=== PATIENT | female | born 1950 | race Two or more races ===

== ENCOUNTER 2019-01-06 05:25 | Day surgery (SDC) | payer MEDICARE, OTHER ==
[2019-01-03 12:17] LABS: CLARITY,URINE CLEAR (Clear); COLOR,URINE STRAW (Yellow); GLUCOSE, URINE NEGATIVE (Neg); KETONES,URINE NEGATIVE (Neg); LEUKOCYTE ESTERASE ,URINE NEGATIVE (Neg); NITRITES, URINE NEGATIVE (Neg); OCCULT BLOOD,URINE SMALL (Neg); PROTEIN,URINE NEGATIVE (Neg); UROBILINOGEN,URINE 0.2 E.U/dL (0.2-1.0)
[2019-01-03 12:21] LABS: UA COLLECTION TYPE CLN CATCH MIDSTREAM
[2019-01-03 12:39] LABS: BASOPHILS % (AUTO) 0.4 % (0-1); EOSINOPHILS # (AUTO) 0.2 X10'3 (0-0.9); EOSINOPHILS % (AUTO) 3.6 % (0-6); LYMPHOCYTES # (AUTO) 1.7 X10'3 (1.1-4.8); LYMPHOCYTES % (AUTO) 27.2 % (21-51); MEAN CORPUSCULAR HEMOGLOBIN 27.9 PG (27.0-31.0); MEAN CORPUSCULAR HGB CONC 33.1 g/dL (33.0-36.5); MEAN CORPUSCULAR VOLUME 84.2 FL (78-98); MEAN PLATELET VOLUME 7.9 FL (7.4-10.4); MONOCYTES # (AUTO) 0.6 X10'3 (0-0.9); MONOCYTES % (AUTO) 9.2 % (2-12); NEUTROPHILS # (AUTO) 3.7 X10'3 (1.8-7.7); NEUTROPHILS % (AUTO) 59.6 % (42-75); PRE OP HEMATOCRIT 36.7 % (35.0-45.0); PRE OP HEMOGLOBIN 12.1 g/dL (12.0-16.0); PRE OP PLATELET COUNT 272 X10'3 (140-440); RED BLOOD COUNT 4.35 X10'6 (4.20-5.60); RED CELL DISTRIBUTION WIDTH 13.3 % (11.5-14.5)
[2019-01-03 12:44] LABS: ALBUMIN 3.2 G/DL (3.4-5.0); ALBUMIN/GLOBULIN RATIO 0.9 (1.1-1.5); ALKALINE PHOSPHATASE 64 IU/L (46-116); BLOOD UREA NITROGEN 13 MG/DL (7-18); BUN/CREATININE RATIO 34.2 (6.6-38.0); CALCIUM 9.5 MG/DL (8.5-10.1); CHLORIDE 106 MMOL/L (99-107); CREATININE 0.38 MG/DL (0.40-0.90); PRE OP ALT 27 U/L (30-65); PRE OP ANION GAP 8 (8-16); PRE OP AST 21 U/L (10-37); PRE OP BILIRUB, TOTAL 0.3 MG/DL (0.0-1.0); PRE OP GLUCOSE 109 MG/DL (70-104); PRE OP POTASSIUM 3.8 MMOL/L (3.4-5.1); PRE OP SODIUM 140 MMOL/L (135-145); TOTAL CARBON DIOXIDE 26.2 MMOL/L (24-32); TOTAL PROTEIN 6.9 G/DL (6.4-8.2); eGFR > 90 ML/MIN
[2019-01-03 13:01] LABS: PRE OP INR 1.1 INR; PRE OP PROTIME 10.7 SECONDS (9.0-12.0)
[2019-01-03 13:02] LABS: MUCUS STRANDS NONE SEEN /LPF (Neg); SQUAMOUS EPITHELIAL CELL,UR FEW /LPF (FEW)
[2019-01-03 13:03] LABS: BACTERIA,URINE NONE SEEN /HPF (Neg); RBC,URINE 0-2 /HPF (0-2); WBC,URINE 0-4 /HPF (0-4)
[2019-01-06] VITALS (17 sets, daily range): BP systolic 139–186; BP diastolic 75–100
[~2019-01-06] VITALS: Ht 157.5 cm; Wt 65.8 kg
[~2019-01-06 05:25] MED LIST: ATOR40TA71 PO; CALC-1051 PO; CHOL100046 PO; FA/M1TAB PO; ringers solution, lacted 1,000 ML IV SCH
[2019-01-06] MEDS ORDERED: famotidine 20mg tablet PO ONE (05:30)
[2019-01-06] MEDS ORDERED: cefotetan 2gm/isosm dext IVPB 50 ML IV ONE (05:30)
[2019-01-06] MEDS ORDERED: tranexamic acid inj. 1,000 MG in normal saline 100 ML IV ONE (05:30)
[2019-01-06] MEDS ORDERED: LIDOcaine 1% (10mg/ml) 2ml vial ONE (05:42)
[2019-01-06] MEDS ORDERED: LIDOcaine 1% 30ml preserv. free vial ONE (06:48)
[2019-01-06] MEDS ORDERED: BUPIVAcaine/PF 2.5mg/ml (0.25%) 10ml vial ONE (06:48)
[2019-01-06] MEDS ORDERED: fentaNYL /PF 50mcg/ml 5ml ampule ONE (07:11)
[2019-01-06] MEDS ORDERED: midazolam 2 mg/2 ml injection ONE (07:11)
[2019-01-06] MEDS ORDERED: sevoflurane 250ml liquid IH ONE (07:12)
[2019-01-06] MEDS ORDERED: rocuronium 10mg/ml inj IV ONE ×2 (07:12)
[2019-01-06] MEDS ORDERED: propofol inj 20 ML IV ONE (07:12)
[2019-01-06] MEDS ORDERED: morphine 10mg/ml inj. ONE (07:47)
[2019-01-06] MEDS ORDERED: ringers solution, lacted 1,000 ML IV SCH (08:22)
[2019-01-06] MEDS ORDERED: morphine 4 MG/ML inj SYRINge IV PRN ×2 (08:25)
[2019-01-06] MEDS ORDERED: ondansetron/PF 4mg/2ml inj IV PRN (08:25)
[2019-01-06] MEDS ORDERED: proCHLORperazine 10 MG/2 ml inj IV PRN (08:25)
[2019-01-06] MEDS ORDERED: meperidine/PF 25mg/ml syringe IV PRN ×3 (08:25)
[2019-01-06] MEDS ORDERED: dexamethasone sod phosphate 4mg/ml inj. ONE (10:06)
[2019-01-06] MEDS ORDERED: glycopyrrolate 0.2mg/ml inj ONE (10:07)
[2019-01-06] MEDS ORDERED: neostigmine methylsulfate 1 MG/ML 10ml vial ONE (10:07)
[2019-01-06] MEDS ORDERED: ondansetron/PF 4mg/2ml inj ONE (10:07)
--- NOTE | 2019-01-06 10:20 | NUR ---
Received from OR via SURGICAL BED, accompanied by Anesthesiologist FUAD and report given by Anesthesiolgist. PATIENT WITH 20G PIOV IN LEFT UE RUNNING LR AT 100. DENIES PAIN. ZIA BARONE ON FOR COMFORT AND SCDS DONNED. NO KOREY PAD. Addendum: 01/06/19 at 1032 by Alejandro Kramer RN, RN Amended: Links added.
--- NOTE | 2019-01-06 11:30 | NUR ---
Report called to receiving nurse VICKY SALINAS. Transferred via SURGICAL BED WITH NO Belongings . Special Issues communicated to Receiving nurse.VSS. BED LOW, CALL LIGHT IN PLACE. PATIENT COMFORTABLE. VOIDED PRIOR TO TRANSFER. 300 CC. VICKY PRESENT TO ASSUME CARE. Addendum: 01/06/19 at 1154 by Alejandro Kramer RN RN Amended: Links added.
--- NOTE | 2019-01-06 12:00 | NUR ---
Patient in room . I have received report from Alejandro SALINAS and had the opportunity to ask questions and assume patient care.
--- NOTE | 2019-01-06 16:03 | NUR ---
Attempted to contact Dr. Mills regarding pain management for this patient. Patient has no orders for any pain medication. Contacted [facility], the number listed to contact Dr. Mills. Was transferred to Dr. Mills's cell phone, but was transferred right to voicemail and "mailbox was full." Called down to recovery and asked Dr. Mills to call surgical.
[2019-01-06] MEDS ORDERED: ketorolac trometh. 30mg/ml inj. IM ONE (17:45)
[2019-01-06] MEDS ORDERED: oxyCODONE/APAP 5-325mg tablet PO ONE (17:45)
--- NOTE | 2019-01-06 18:30 | NUR ---
Problems reprioritized. Patient report given, questions answered & plan of care reviewed with Ara Andrea RN.
--- NOTE | 2019-01-06 18:52 | NUR ---
PT D/C AT THIS SHIFT; d/c instructions provided, IV d/c , pt going home with spouse in private car and assisted at the lobby on w/c with staff.
[2019-01-06] MEDS ORDERED: atorvastatin 20mg tablet PO SCH (21:00)
[2019-01-07] MEDS ORDERED: vitamin D (cholecalciferol) 1,000 unit tablet PO SCH (08:00)
[2019-01-07] MEDS ORDERED: multivitamins, therapeutics tablet PO SCH (08:00)
[2019-01-07] MEDS ORDERED: calcium carbonate/vitamin D3 tablet PO SCH (08:00)
== END 2019-01-06 18:56 | disposition home or self-care (01) ==
LOC: PAS 05:25 → SUR 3N 10:50 → PAS 18:56
PROVIDERS: ATTEND Obstetrics & Gynecology
DX: N87.9 Dysplasia of cervix uteri, unspecified (principal); N80.0 Endometriosis of uterus; N73.6 Female pelvic peritoneal adhesions (postinfective); E78.00 Pure hypercholesterolemia, unspecified; M81.0 Age-related osteoporosis without current pathological fracture; Z79.899 Other long term (current) drug therapy; Z79.82 Long term (current) use of aspirin
CPT/HCPCS: 36415; 58571; 80053; 81001; 82948; 85025; 85610; 85730; 93005; J1100; J1885; J2250; J2270; J2405; J2704; J2710; J3010; J3490; J7120; A4355; A7000; C1758; G0378; J7030